=== PATIENT | male | born 1995 | race Caucasian/White ===

== ENCOUNTER 2019-02-24 19:55 | Emergency (ER) | payer OTHER ==
[2019-02-24] MEDS ORDERED: IBUPROFEN 800 MG TABLET PO STA (20:43)
[2019-02-24] MEDS ORDERED: DEXAMETHASONE 10 MG/ML VIAL PO STA (20:43)
[2019-02-24] MEDS ORDERED: CHERRY SYRUP 10 ML UDC PO ONE (20:43)
--- NOTE | 2019-02-24 20:47 | ED Physician Documentation ---
History of Present Illness - Stated complaint Stated Complaint: NECK, SHOULDER, CHEST PAIN LT SIDE - Chief complaint Chief Complaint: Trauma Hd/Nk - History obtained from History obtained from: Patient - History of Present Illness Timing: Today Pain level max: 5 Pain level now: 0 - Additonal information Additional information: 23-year-old male states that for the past 6 days he has occasional shooting pains that start in his neck. Sometimes they radiate to the occiput. Sometimes down the arm and sometimes down towards the chest. They last for a few seconds at a time. Nothing makes it better or worse. Denies any trauma. Denies any recent illnesses. Review of Systems Constitutional: denies: Fever, Chills Throat: denies: Sore throat Cardiac: denies: Chest pain / pressure, Palpitations Respiratory: denies: Dyspnea, Cough GI: denies: Nausea, Vomiting Skin: denies: Rash Musculoskeletal: denies: Neck pain, Back pain PD PAST MEDICAL HISTORY - Past Medical History Past Medical History: No - Past Surgical History Past Surgical History: No - Present Medications Home Medications: Ambulatory Orders Medication Instructions Recorded Confirmed No Known Home Medications 02/24/19 02/24/19 - Allergies Allergies/Adverse Reactions: Allergies Allergy/AdvReac Type Severity Reaction Status Date / Time No Known Drug Allergies Allergy Verified 02/24/19 20:01 - Social History Does the pt smoke?: No Smoking Status: Never smoker Does the pt drink ETOH?: Yes Does the pt have substance abuse?: No - Immunizations Immunizations are current?: Yes - POLST Patient has POLST: No PD ED PE NORMAL - Vitals Vital signs reviewed: Yes - General General: Alert and oriented X 3, No acute distress, Well developed/nourished - HEENT HEENT: PERRL, Ears normal, Moist mucous membranes, Pharynx benign - Neck Neck: Supple, no meningeal sign, No bony TTP, No JVD, No bruit - Cardiac Cardiac: RRR, No murmur, Strong equal pulses - Respiratory Respiratory: No respiratory distress, Clear bilaterally - Derm Derm: Warm and dry - Neuro Neuro: Alert and oriented X 3, weigh boss 2-12 intact, No motor deficit, No sensory deficit, Normal speech, Other (Negative Spurling test) Eye Opening: Spontaneous Motor: Obeys Commands Verbal: Oriented GCS Score: 15 Results - Vitals Vitals: Vital Signs - 24 hr 12/21/19 12/21/19 19:57 20:53 Temperature 36.4 C L 37.1 C Heart Rate 84 80 Respiratory 18 16 Rate Blood Pressure 164/94 H 151/101 H O2 Saturation 100 100 Oxygen O2 Source Room air PD MEDICAL DECISION MAKING - ED course Complexity details: considered differential, d/w patient ED course: Patient with what appears to be cervical radiculopathy. No acute findings here. We will trial on steroids and Motrin. No evidence of carotid dissection, aortic dissection. No evidence of acute coronary syndrome. Patient counseled regarding signs and symptoms for which I believe and urgent re-evaluation would be necessary. Patient with good understanding of and agreement to plan and is comfortable going home at this time This document was made in part using voice recognition software. While efforts are made to proofread this document, sound alike and grammatical errors may occur. Departure - Departure Disposition: 01 Home, Self Care Clinical Impression: Cervical radiculopathy Condition: Good Instructions: ED Cervical Radiculopathy Follow-Up: your,doctor in 1 week [Other] Comments: You can try Motrin or Tylenol at home for pain. Return if you worsen. This should improve over the next few days. Discharge Date/Time: 02/24/19 20:55
[2019-02-24 20:53] VITALS: BP 151/101
== END 2019-02-24 20:55 | disposition home or self-care (01) ==
LOC: ED 19:55
DX: M54.12 Radiculopathy, cervical region (principal)
CPT/HCPCS: 99282; 99284; A9270

== ENCOUNTER 2019-10-22 09:45 | Outpatient (CLI) | payer OTHER ==
[2019-10-22 12:09] LABS: BASOPHILS # (AUTO) 0.1 10^3/uL (0.0-0.1); BASOPHILS % (AUTO) 1.2 %; EOSINOPHILS # (AUTO) 0.3 10^3/uL (0.0-0.7); EOSINOPHILS % (AUTO) 3.4 %; HGB - HEMOGLOBIN 16.7 g/dL (14.0-18.0); LYMPHOCYTES # (AUTO) 2.2 10^3/uL (1.5-3.5); LYMPHOCYTES % (AUTO) 27.1 %; MEAN CORPUSCULAR HEMOGLOBIN 30.7 pg (27.0-31.0); MEAN CORPUSCULAR HGB CONC 34.4 g/dL (32.0-36.0); MEAN CORPUSCULAR VOLUME 89.2 fL (80.0-94.0); MEAN PLATELET VOLUME 9.1 fL (7.4-11.4); MONOCYTES # (AUTO) 0.6 10^3/uL (0.0-1.0); MONOCYTES % (AUTO) 6.8 %; NEUTROPHILS % (AUTO) 60.5 %; PLT - PLATELET COUNT 253 10^3/uL (130-450); RED BLOOD COUNT 5.44 10^6/uL (4.70-6.10); RED CELL DISTRIBUTION WIDTH 12.1 % (12.0-15.0); WHITE BLOOD COUNT 8.2 x10^3/uL (4.8-10.8)
[2019-10-22 12:42] LABS: ALBUMIN 5.1 g/dL (3.2-5.5); BILIRUBIN,TOTAL 1.6 mg/dL (0.2-1.0); CALCIUM 9.1 mg/dL (8.5-10.3); CREATININE 0.8 mg/dL (0.6-1.2); TOTAL PROTEIN 7.6 g/dL (6.7-8.2)
== END 2019-10-22 23:59 | disposition home or self-care (01) ==
LOC: LAB.WCP 09:45
PROVIDERS: ATTEND Nurse Practitioner Family
DX: R03.0 Elevated blood-pressure reading, without diagnosis of hypertension (principal); Z82.49 Family history of ischemic heart disease and other diseases of the circulatory system
CPT/HCPCS: 36415; 80053; 84443; 85025

== ENCOUNTER 2019-11-27 08:00 | Outpatient (CLI) | payer OTHER ==
[2019-11-27 13:38] LABS: CHOL/HDL RATIO 2.6 (<5.0); CHOLESTEROL 189 mg/dL; HDL CHOLESTEROL 74 mg/dL; LDL CHOLESTEROL,CALCULATED 84 mg/dL; LDL/HDL RATIO 1.1 (<3.6); VLDL CHOLESTEROL 31 mg/dL
== END 2019-11-27 23:59 ==
LOC: LAB.WCP 08:00
PROVIDERS: ATTEND Nurse Practitioner Family
DX: I10 Essential (primary) hypertension (principal)
CPT/HCPCS: 36415; 80061; 83721; 84443

== ENCOUNTER 2021-01-20 09:10 | Emergency (ER) | payer OTHER ==
--- NOTE | 2021-01-20 09:47 | ED Physician Documentation ---
PD HPI CHEST PAIN - Stated complaint Stated Complaint: CHEST PX - Chief complaint Chief Complaint: Cardiac - History obtained from History obtained from: Patient - History of Present Illness Timing - onset: Last night Timing - onset during: Rest Timing - duration: Minutes Timing - details: Intermittant Quality: Pressure, Aching, Pain Location: Substernal, Left chest Radiation: Back. No: Jaw, Neck Improved by: Rest (it seemed to just resolve itself after few minutes. Had it last night briefly, then recurred again this morning. After it, he had feeling of heart racing. Did not count HR, but felt current HR and said it felt about twice as fast (current is 88, so presume it was about 160). That lasted about 3 min.) Worsened by: Movement, Position (feels the chest pain/pressure more with leaning forward/ sitting up. No worse with breathing.). No: Inspiration, Eating, Palpation Associated symptoms: Shortness of air, Palpitations. No: Nausea, Feeling faint / dizzy, Cough Similar symptoms before: No diagnosis (has had episodes of abrupt chest pain for minutes/hours in the past several months. No recent cough nor illness. Sometimes he has had feeling of heart racing for just seconds at a time.) Recently seen: Not recently seen (he states was several years ago, he had Holter type monitor for a week through PMD at [facility] for episodes of palpitations but no findings at that time. No other tests besides ECG and he does not recall being told an abnormality.) Review of Systems Constitutional: denies: Fever, Chills Nose: denies: Rhinorrhea / runny nose, Congestion Throat: denies: Sore throat Cardiac: reports: Palpitations (brief without pattern, infrequent.). denies: Pedal edema, Calf pain Respiratory: denies: Cough GI: denies: Abdominal Pain, Nausea, Vomiting, Diarrhea Neurologic: denies: Near syncope, Syncope, Altered mental status Endocrine: denies: Weight loss, Weight gain PD PAST MEDICAL HISTORY - Past Medical History Past Medical History: Yes Cardiovascular: Hypertension Respiratory: None Neuro: None Endocrine/Autoimmune: None GI: None : None, Retention HEENT: None Psych: None Musculoskeletal: None Derm: None - Past Surgical History Past Surgical History: No - Present Medications Home Medications: Ambulatory Orders Medication Instructions Recorded Confirmed Ibuprofen [Motrin] 600 mg PO TID PRN #25 tab 01/20/21 lisinopriL [Zestril] 5 mg PO DAILY PM 01/20/21 01/20/21 - Allergies Allergies/Adverse Reactions: Allergies Allergy/AdvReac Type Severity Reaction Status Date / Time No Known Drug Allergies Allergy Verified 01/20/21 09:25 - Social History Does the pt smoke?: No Smoking Status: Former smoker Does the pt drink ETOH?: Yes Does the pt have substance abuse?: Yes Substance Use and Type: CBD oil / Products - Family History Family history: denies: Venous thromboembolism, Aortic aneursym, Aortic dissection - Immunizations Immunizations are current?: Yes - POLST Patient has POLST: No PD ED PE NORMAL - Vitals Vital signs reviewed: Yes - General General: Alert and oriented X 3, Well developed/nourished - HEENT HEENT: Pharynx benign - Neck Neck: Supple, no meningeal sign, No adenopathy, Thyroid normal - Cardiac Cardiac: RRR, No murmur, No rub - Respiratory Respiratory: Clear bilaterally, Other (no chestwall tenderness. ) - Abdomen Abdomen: Soft, Non tender - Derm Derm: Normal color, Warm and dry - Extremities Extremities: No edema, No calf tenderness / cord - Neuro Neuro: Alert and oriented X 3, No motor deficit, Normal speech Results - Vitals Vitals: Vital Signs - 24 hr 01/20/21 01/20/21 01/20/21 09:21 09:28 11:30 Temperature 36.9 C 36.7 C Heart Rate 88 93 77 Respiratory 18 14 12 Rate Blood Pressure 141/100 H 127/91 H 122/76 O2 Saturation 100 100 98 Oxygen O2 Source Room air - EKG (time done) on presentation Rhythm: NSR Skipwith: Normal Intervals: Normal IN, Wide QRS (slightly wide with upsloping initially c/w delta wave/ preexitation, c/w WPW. ) - Labs Labs: Laboratory Tests 01/20/21 01/20/21 01/20/21 10:29 10:29 10:29 WBC 8.9 RBC 5.39 Hgb 16.0 Hct 47.1 MCV 87.4 MCH 29.7 MCHC 34.0 RDW 12.2 Plt Count 247 MPV 8.9 Neut # (Auto) 5.6 Lymph # (Auto) 2.2 Dade # (Auto) 0.7 Eos # (Auto) 0.3 Baso # (Auto) 0.1 Absolute Nucleated RBC 0.00 Nucleated RBC % 0.0 Sodium 141 Potassium 3.9 Chloride 104 Carbon Dioxide 27 Anion Gap 10.0 BUN 16 Creatinine 0.9 Estimated GFR (MDRD) 101 Glucose 82 Calcium 10.0 Total Bilirubin 2.7 H AST 12 ALT 12 Alkaline Phosphatase 37 L Troponin I High Sens < 2.3 L B-Natriuretic Peptide Total Protein 6.9 Albumin 4.9 Globulin 2.0 L Albumin/Globulin Ratio 2.5 H Lipase 37 01/20/21 10:29 WBC RBC Hgb Hct MCV MCH MCHC RDW Plt Count MPV Neut # (Auto) Lymph # (Auto) Dade # (Auto) Eos # (Auto) Baso # (Auto) Absolute Nucleated RBC Nucleated RBC % Sodium Potassium Chloride Carbon Dioxide Anion Gap BUN Creatinine Estimated GFR (MDRD) Glucose Calcium Total Bilirubin AST ALT Alkaline Phosphatase Troponin I High Sens B-Natriuretic Peptide 15 Total Protein Albumin Globulin Albumin/Globulin Ratio Lipase - Rads (name of study) chest angio Radiology: Prelim report reviewed (normal. No PE nor aortic process. 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 Can refer to Cardiology (or get referral from PMD). This may have accounted for palpitations/fast HR feeling he had. It should not be causing pain though, so need to consider other causes, right now presume musculoskeletal. ), considered differential (chest pressure/pain and some dyspnea which is positional, in young male with HTN. Consider connective tissue process/eval for aortic dissection. Also consider PE, PTX, pneumonia, pericarditis, myocarditis, etc. ), d/w patient Departure - Departure Disposition: 01 Home, Self Care Clinical Impression: Rapid heart rate, Abnormal EKG Chest pain Qualifiers: Chest pain type: precordial pain Qualified Code(s): R07.2 - Precordial pain Condition: Stable Record reviewed to determine appropriate education?: Yes Instructions: ED Chest Pain Costochondritis Follow-Up: [facility] [place] [Provider Group] Nic Bateman MD [Physician No Access] - Prescriptions: Ibuprofen [Motrin] 600 mg PO TID PRN #25 tab PRN Reason: Pain Comments: No Signs of more significant cause for your pain. Presume there is some inflammation through the chest wall or in cartilage. I would suggest ibuprofen 3 times a day with food for the next week. To that add Tylenol every 4-6 hours if needed for pain. Your EKG does show now abnormality that may suggest a tendency towards rapid heartbeats. But this would not be causing your pain but may relate to the episode of fast heart rate that you felt. Follow-up with cardiology regarding this to see if a suggest any further evaluation or testing of that. Discharge Date/Time: 01/20/21 12:33
[2021-01-20] MEDS ORDERED: SODIUM CHLORIDE 0.9% 1,000 ML IV STA (10:18)
[2021-01-20] MEDS ORDERED: KETOROLAC 30 MG/ML VIAL IVP STA (10:19)
[2021-01-20] MEDS ORDERED: ACETAMINOPHEN 325 MG TABLET PO STA (10:21)
[2021-01-20 10:33] LABS: BASOPHILS # (AUTO) 0.1 10^3/uL (0.0-0.1); EOSINOPHILS # (AUTO) 0.3 10^3/uL (0.0-0.7); EOSINOPHILS % (AUTO) 3.2 %; HCT - HEMATOCRIT 47.1 % (42.0-52.0); LYMPHOCYTES # (AUTO) 2.2 10^3/uL (1.5-3.5); LYMPHOCYTES % (AUTO) 24.9 %; MEAN CORPUSCULAR HEMOGLOBIN 29.7 pg (27.0-31.0); MEAN CORPUSCULAR VOLUME 87.4 fL (80.0-94.0); MEAN PLATELET VOLUME 8.9 fL (7.4-11.4); MONOCYTES # (AUTO) 0.7 10^3/uL (0.0-1.0); MONOCYTES % (AUTO) 7.5 %; NEUTROPHILS # (AUTO) 5.6 10^3/uL (1.5-6.6); PLT - PLATELET COUNT 247 10^3/uL (130-450); RED BLOOD COUNT 5.39 10^6/uL (4.70-6.10); RED CELL DISTRIBUTION WIDTH 12.2 % (12.0-15.0); WHITE BLOOD COUNT 8.9 x10^3/uL (4.8-10.8)
[2021-01-20] MEDS ORDERED: IOVERSOL 320 100 ML VIAL IVP ONE ×2 (10:37→12:28)
[2021-01-20 10:56] LABS: ALBUMIN 4.9 g/dL (3.2-5.5); ALBUMIN/GLOBULIN RATIO 2.5 (1.0-2.2); BILIRUBIN,TOTAL 2.7 mg/dL (0.2-1.0); CREATININE 0.9 mg/dL (0.6-1.2); POTASSIUM 3.9 mmol/L (3.5-5.0); TOTAL PROTEIN 6.9 g/dL (6.7-8.2)
[2021-01-20 11:31] VITALS: BP 122/76
--- NOTE | 2021-01-20 11:38 | CT Report ---
PROCEDURE: ANGIO CHEST W/WO INDICATIONS: chest pain and palpitations; eval aorta CONTRAST: IV CONTRAST: Optiray 320 ml: 80 PO CONTRAST: *NO PO CONTRAST TECHNIQUE: After the administration of intravenous contrast, 2 mm axial images were acquired from the pulmonary apices to the posterior costophrenic angles during the arterial phase. In addition, 1 mm lung kernel and 5 mm soft tissue kernel reconstructions were performed. 3-dimensional coronal oblique maximum int ensity projection (MIP) reformats, 8 mm axial MIP, and 5 mm coronal and sagittal MPR reformats were t hen performed through the thorax. For radiation dose reduction, the following was used: automated exp osure control, adjustment of mA and/or kV according to patient size. COMPARISON: None. FINDINGS: Image quality: Diagnostic. Pulmonary arteries: Pulmonary arteries are normal in size, and demonstrate no intraluminal filling d efects to suggest central pulmonary embolism. Lungs and pleura: Lungs are clear. No pleural effusions or pneumothorax. Central and peripheral ai rways are patent. Mediastinum: Heart size is normal, without pericardial effusion. No mediastinal or hilar adenopathy . Thoracic aorta is normal in caliber and enhancement. No evidence for aortic dissection. Esophagus is normal in caliber, without hiatal hernia. Bones and chest wall: No suspicious bony lesions. Ribs and thoracic spine appear intact throughout. No axillary or supraclavicular adenopathy. The thyroid is normal in size and there are no incident al findings. Abdomen: Visualized upper abdominal solid organs appear normal in the early arterial phase of enhanc ement. IMPRESSION: No acute pulmonary emboli. No acute cardiopulmonary abnormalities. No aortic dissection or aneurysmal dilatation. CLINICAL RECOMMENDATION STATEMENTS: In patients <35 years with an ITN detected on CT, MRI, or extrathyroidal ultrasound, the Committee re commends further evaluation with dedicated thyroid ultrasound if the nodule is "e1 cm and has no susp icious imaging features, and if the patient has normal life expectancy. In patients "e35 years with an ITN detected on CT, MRI, or extrathyroidal ultrasound, the Committee r ecommends further evaluation with dedicated thyroid ultrasound if the nodule is "e1.5 cm and has no s uspicious imaging features, and if the patient has normal life expectancy. (ACR, 2014) Reviewed by: Carlo Colin MD on 01/20/2021 11:36 AM PST Approved by: Carlo Colin MD on 01/20/2021 11:36 AM [facility] Station ID: [id number]
== END 2021-01-20 12:33 | disposition home or self-care (01) ==
LOC: ED 09:10
DX: R00.0 Tachycardia, unspecified (principal); R94.31 Abnormal electrocardiogram [ECG] [EKG]; R07.2 Precordial pain; Z87.891 Personal history of nicotine dependence
CPT/HCPCS: 36415; 71275; 80053; 83690; 83880; 84484; 85025; 93005; 96374; 99283; 99284; A9270; Q9967

== ENCOUNTER 2021-07-08 08:05 | Outpatient (CLI) | payer OTHER ==
[2021-07-08 08:10] LABS: BASOPHILS # (AUTO) 0.1 10^3/uL (0.0-0.1); BASOPHILS % (AUTO) 1.3 %; EOSINOPHILS # (AUTO) 0.2 10^3/uL (0.0-0.7); EOSINOPHILS % (AUTO) 3.1 %; HCT - HEMATOCRIT 48.9 % (42.0-52.0); HGB - HEMOGLOBIN 16.8 g/dL (14.0-18.0); LYMPHOCYTES # (AUTO) 2.6 10^3/uL (1.5-3.5); MEAN CORPUSCULAR HEMOGLOBIN 29.4 pg (27.0-31.0); MEAN CORPUSCULAR HGB CONC 34.4 g/dL (32.0-36.0); MEAN CORPUSCULAR VOLUME 85.6 fL (80.0-94.0); MEAN PLATELET VOLUME 8.9 fL (7.4-11.4); MONOCYTES # (AUTO) 0.6 10^3/uL (0.0-1.0); MONOCYTES % (AUTO) 7.9 %; NEUTROPHILS # (AUTO) 4.2 10^3/uL (1.5-6.6); NEUTROPHILS % (AUTO) 54.2 %; PLT - PLATELET COUNT 281 10^3/uL (130-450); RED BLOOD COUNT 5.71 10^6/uL (4.70-6.10); RED CELL DISTRIBUTION WIDTH 12.1 % (12.0-15.0); WHITE BLOOD COUNT 7.8 x10^3/uL (4.8-10.8)
[2021-07-08 08:40] LABS: THYROID STIMULATING HORMONE 2.09 uIU/mL (0.34-5.60)
[2021-07-08 08:41] LABS: ALBUMIN 5.4 g/dL (3.2-5.5); ALBUMIN/GLOBULIN RATIO 2.2 (1.0-2.2); ALKALINE PHOSPHATASE 44 IU/L (42-121); ALT ALANINE AMINOTRANSFERASE 11 IU/L (10-60); AST ASPARTATE AMINOTRANSFERASE 13 IU/L (10-42); BILIRUBIN,TOTAL 2.9 mg/dL (0.2-1.0); BUN - BLOOD UREA NITROGEN 16 mg/dL (6-20); CARBON DIOXIDE - CO2 27 mmol/L (21-32); CHLORIDE 102 mmol/L (101-111); CHOL/HDL RATIO 2.7 (<5.0); CHOLESTEROL 186 mg/dL; GFR - MDRD 90 (>89); GLUCOSE 99 mg/dL (70-100); HDL CHOLESTEROL 68 mg/dL; LDL CHOLESTEROL,CALCULATED 101 mg/dL; LDL/HDL RATIO 1.5 (<3.6); POTASSIUM 4.2 mmol/L (3.5-5.0); SODIUM 140 mmol/L (135-145); TOTAL PROTEIN 7.9 g/dL (6.7-8.2); TRIGLYCERIDES 83 mg/dL; VLDL CHOLESTEROL 17 mg/dL
== END 2021-07-08 23:59 | disposition home or self-care (01) ==
LOC: LAB 08:05
PROVIDERS: ATTEND Internal Medicine
DX: I10 Essential (primary) hypertension (principal); Z13.220 Encounter for screening for lipoid disorders; Z13.29 Encounter for screening for other suspected endocrine disorder
CPT/HCPCS: 36415; 80050; 80061; 83721